=== PATIENT | female | born 1975 | race Caucasian/White ===

== ENCOUNTER 2016-08-07 19:36 | Emergency (ER) | payer OTHER ==
[~2016-08-07 19:36] MED LIST: ACIPHEX20 MG PO; CHEWABLE MULTI1 EACH PO; CLARITIN10 MG PO; COUMADIN,JANTOV10 MG PO; COUMADIN,JANTOVE5 MG PO; MELOXICAM15 MG PO; ZOLOFT100 MG PO
== END 2016-08-07 20:50 | disposition left against medical advice (07) ==
LOC: EME 19:36
DX: Z11.1 Encounter for screening for respiratory tuberculosis (principal); Z53.21 Procedure and treatment not carried out due to patient leaving prior to being seen by health care provider
CPT/HCPCS: 71020; 99281; 99283

== ENCOUNTER 2017-01-25 08:36 | Day surgery (SDC) | payer OTHER ==
[~2017-01-25] VITALS: Ht 167.6 cm; Wt 121.6 kg
[~2017-01-25 08:36] MED LIST changes: +B COMPLEX #11 EACH PO; +TYLENOL EXTRA500 MG PO
[2017-01-25 09:22] VITALS: BP 132/89
[2017-01-25] MEDS ORDERED: IBUPROFEN800 MG PO (13:49)
[2017-01-25] MEDS ORDERED: ENDOCET 5-3251 EACH PO (13:49)
[2017-01-25 15:03] VITALS: BP 129/67
[2017-01-25 18:27] VITALS: BP 131/87
[2017-01-25 19:27] VITALS: BP 140/80
== END 2017-01-25 19:34 | disposition home or self-care (01) ==
LOC: SDC 08:36
PROC: 0UT94ZZ Resection of Uterus, Percutaneous Endoscopic Approach (ICD-10-PCS; principal; 2017-01-25)
PROC: 0UT74ZZ Resection of Bilateral Fallopian Tubes, Percutaneous Endoscopic Approach (ICD-10-PCS; principal; 2017-01-25)
PROC: 0UTC4ZZ Resection of Cervix, Percutaneous Endoscopic Approach (ICD-10-PCS; principal; 2017-01-25)
DX: D25.1 Intramural leiomyoma of uterus (principal); N94.6 Dysmenorrhea, unspecified; N73.6 Female pelvic peritoneal adhesions (postinfective); F32.9 Major depressive disorder, single episode, unspecified; Z87.891 Personal history of nicotine dependence; Z82.49 Family history of ischemic heart disease and other diseases of the circulatory system; Z80.0 Family history of malignant neoplasm of digestive organs; Z83.3 Family history of diabetes mellitus; Z80.3 Family history of malignant neoplasm of breast
CPT/HCPCS: 88307; J0131; J0330; J0690; J1100; J1170; J1885; J2250; J2405; J2710